=== PATIENT | female | born 1955 | race Caucasian/White ===

== ENCOUNTER 2017-10-29 15:43 | Emergency (ER) | payer MEDICARE, OTHER ==
[~2017-10-29] VITALS: Ht 160 cm; Wt 74.4 kg
[2017-10-29 15:56] VITALS: Ht 160 cm; Wt 74.4 kg
[2017-10-29 17:07] VITALS: BP 161/103
== END 2017-10-29 17:07 | disposition home or self-care (01) ==
LOC: ED 15:43
DX: M54.2 Cervicalgia (principal); E11.9 Type 2 diabetes mellitus without complications; I10 Essential (primary) hypertension

== ENCOUNTER 2018-04-15 09:32 | Emergency (ER) | payer OTHER ==
[~2018-04-15] VITALS: Ht 162.6 cm; Wt 72.6 kg
[2018-04-15 09:38] VITALS: BP 129/90; Ht 162.6 cm; Wt 72.6 kg
== END 2018-04-15 11:01 | disposition home or self-care (01) ==
LOC: ED 09:32
DX: S93.402A Sprain of unspecified ligament of left ankle, initial encounter (principal); M81.0 Age-related osteoporosis without current pathological fracture; E11.9 Type 2 diabetes mellitus without complications; I10 Essential (primary) hypertension; Z90.10 Acquired absence of unspecified breast and nipple; X50.1XXA Overexertion from prolonged static or awkward postures, initial encounter; Y93.89 Activity, other specified; Y92.002 Bathroom of unspecified non-institutional (private) residence as the place of occurrence of the external cause; Y99.8 Other external cause status

== ENCOUNTER 2018-12-15 17:53 | Emergency (ER) | payer OTHER ==
[~2018-12-15] VITALS: Ht 157.5 cm; Wt 72.6 kg
[2018-12-15 18:10] VITALS: Ht 157.5 cm; Wt 72.6 kg
[2018-12-15 19:22] VITALS: BP 143/98
== END 2018-12-15 19:22 | disposition home or self-care (01) ==
LOC: ED 17:53
DX: S83.92XA Sprain of unspecified site of left knee, initial encounter (principal); I10 Essential (primary) hypertension; E11.9 Type 2 diabetes mellitus without complications; W18.30XA Fall on same level, unspecified, initial encounter; Y93.89 Activity, other specified; Y92.89 Other specified places as the place of occurrence of the external cause; Y99.8 Other external cause status